=== PATIENT | male | born 1960 | race Asian ===

== ENCOUNTER 2016-04-17 11:48 | Emergency (ER) | payer OTHER ==
[2016-04-17 12:00] VITALS: TEMP 97.8; BMI 20.9
[2016-04-17] MEDS ORDERED: PROPARACAINE 0.5% OPHTH SOLN 15 ML BOTTLE OP ONE (12:01)
[2016-04-17] MEDS ORDERED: FLUORESCEIN SODIUM 1 MG APP OP ONE (12:01)
--- NOTE | 2016-04-17 12:05 | EDPRACDOC ---
- General Information Chief Complaint: Eye Problems Stated Complaint: LT EYE REDNESS IRRITATED Time Seen by Provider: 04/17/16 11:57 Information Source: Patient Mode Of Arrival: Car Home Medications: Home Medications Atorvastatin Calcium [Lipitor] 40 mg PO DAILY 01/09/16 Ida-3 Acid Ethyl Esters [Lovaza] 1 gm PO DAILY 01/09/16 Acetaminophen [Tylenol] 650 mg PO Q6 01/12/16 Allergies/Adverse Reactions: Allergies Allergy/AdvReac Type Severity Reaction Status Date / Time No Known Allergies Allergy Verified 04/17/16 12:00 - History of Present Illness Onset: this AM HPI: Pt c/o L upper lip redness and eye pain x 1 day. Denies fever, earache, sore throat, congestion, cough, contact use. Hx entropion 3 yr ago Eye Symptoms: Reports: Discomfort, Redness Symptoms: Moderate Relevent History: Reports: None Cough: Denies: Non-productive, NO, Productive, Clear, Bloody, Brown, Green, White, Yellow, T, BK, HK, CO, S, WK, O Rhinorrhea: Reports: None. Denies: Clear, Bloody, Brown, Green, Purulent Last Tetanus: Yes Associated Signs and Symptoms:: Reports: None ED Past Medical History - History Reviewed Yes Nurses notes reviewed and agree except as marked - Patient Medical History Respiratory History: Denies: Pneumonia GI/ History: Reports: Ulcer Psychological History: Denies: Depression - Family Medical History Reports: Diabetes (SISTER), Cancer (BROTHER/COLON, BROTHER-LUNG). Denies: Hypertension, Stroke, Cardiac Disorders - Social Medical History Smoking Status: Never smoker ETOH: None Substance Abuse: None EDM Review of Systems - Review of Systems Constitutional: No Symptoms Reported. negative: Fever, Chills, Weakness, Fatigue, Loss of Appetite Eyes: Pain, Redness Ears: No Symptoms Reported. negative: Pain, Hearing Loss, Drainage, Ear Pulling Throat: No Symptoms Reported. negative: Pain, Swelling Nose: No Symptoms Reported. negative: Congestion, Bleeding, Discharge, Injection, Swelling, Deformity, Ecchymosis, Tender, Abrasion, Laceration Mouth: No Symptoms Reported. negative: Pain, Drooling Respiratory: No Symptoms Reported. negative: Cough, Brassy Cough, Barky Cough, Shortness of Breath, Wheezing, Hemoptysis Cardiovascular: No Symptoms Reported. negative: Chest Pain, Palpitations, Syncope, Edema, Orthopnea, PND, Skin Mottling, Cyanosis Integumentary: No Symptoms Reported. negative: Itching, Rash, Bruising, Wound Allergic/Immunologic: No Symptoms Reported. negative: Hives, Itching Hematologic: No Symptoms Reported. negative: Lymphadenopathy, Easy Bruising, Easy Bleeding Psychiatric: No Symptoms Reported. negative: Anxiety, Depression, Hallucinations, Insomnia, Suicidal - Physical Exam Constitutional: Alert Oriented to: Time, Person, Place Last recorded Vital Signs: Last Vital Signs Temp 97.8 F 04/17/16 11:56 Pulse 102 04/17/16 11:56 Resp 18 04/17/16 11:56 BP 158/89 04/17/16 11:56 Pulse Ox 97 04/17/16 11:56 Oxygen Pulse Oxygen Saturation 97 O2 Device Room Air Oxygen Flow Rate Fraction of Inspired Oxygen ( FIO2) - HEENT Head: Normal ( normocephalic) Eye Exam: Conjunctival Injection Oropharynx: Normal (Pharynx:Moist without exudate,Gums-no swelling) Tympanic Membrane: Normal ENT EAC: Normal TMJ: Normal Nose: No Symptoms Reported (septum midline) Neck: Normal (FROM, trachea at midline) - Respiratory/Cardiovascular Respiratory: Normal - CTA (BBS clear to auscultation without adventitious sounds ) Cardiovascular: Normal (RRR without murmur, gallop or rub) - Musculoskeletal Back: Normal (Non-Tender) Extremities: Normal (Normal tone, Pulses 2+ No cyanosis or edema, FROM) - Integumentary Skin: Normal, Warm, Dry Lymphatics: Normal (no adenopathy) - Neurologic Memory Impaired: Normal Motor Function: Normal (Normal tone, Pulses 2+ No cyanosis or edema, FROM) Mood Description: Normal Perception: Normal ED Eye Problem Exam - Vision Acuity Both Eyes: 20/25 Right Eye: 20/25 Left eye: 20/25 Eye Exam: right eye: normal inspection, left eye: conjunctival inflammation, corneal abrasion (upper medial ), eyelid inflammation (upper L), bilateral eye: PERRL, EOMI Sclera: Other (erythema L medial sclera) Eye Discharge: Clear Comment: Upper lid inverted, no FB, some upper lid lashes curling under, removed with tweezers, pt tolerated well - Differential Diagnosis Bacterial Conjunctivitis, Corneal Abrasion, Hordeolum (sty), Other (blepharitis , entropion) Decision Time to Discharge: 12:28 - Departure Disposition: Home Condition: Good Final Diagnosis: Corneal abrasion Entropion Qualifiers: Laterality: left Qualified Code(s): H02.006 - Unspecified entropion of left eye , unspecified eyelid Instructions: Corneal Abrasion (ED) Education/Counseling Given To: Patient Education/Counseling Given Regarding: Diagnosis, Treatment, Follow Up Referrals: Devon Arango MD [Primary Care Provider] - One Week Ej Joe MD [Staff Physician] - One Week Prescriptions: No Action Atorvastatin Calcium [Lipitor] 40 mg PO DAILY Ida-3 Acid Ethyl Esters [Lovaza] 1 gm PO DAILY Acetaminophen [Tylenol] 650 mg PO Q6 Additional Instructions: Gentamicin 2 drops in L eye every 4 hours x 7 days. Follow up with [employer] in 1-2 days.
[2016-04-17 12:08] VITALS: BP 144/76; PULSE 96
[2016-04-17] MEDS ORDERED: GENTAMICIN 0.3% OPHTH SOLN 5 ML BOTTLE OS ONE (12:26)
== END 2016-04-17 12:38 | disposition home or self-care (01) ==
LOC: ED 11:48 → EDMC 12:38
DX: S05.00XA Injury of conjunctiva and corneal abrasion without foreign body, unspecified eye, initial encounter (principal); S00.209A Unspecified superficial injury of unspecified eyelid and periocular area, initial encounter; X58.XXXA Exposure to other specified factors, initial encounter; Y93.9 Activity, unspecified; H02.006 Unspecified entropion of left eye, unspecified eyelid
CPT/HCPCS: 99283; J3490